=== PATIENT | male | born 2000 | race Caucasian/White ===

== ENCOUNTER 2020-08-20 15:46 | Emergency (ER) | payer OTHER ==
[2020-08-20 17:23] LABS: Bilirubin Neg (Negative); Blood, Urine Negative (Negative); Clarity Clear (Clear); Glucose, Urine (Dipstick) Normal (Negative); Ketone, Urine 50 mg/dL (Negative); Leukocyte Negative (Negative); Nitrite Negative (Negative); Protein, Urine (Dipstick) Negative (Neg-Trace); Specific Gravity, Urine 1.025 (1.002-1.036); Urobilinogen Normal mg/dL (Less than 2)
== END 2020-08-20 18:12 | disposition home or self-care (01) ==
LOC: CSHERS 15:46
DX: N50.811 Right testicular pain (principal)
CPT/HCPCS: 76870; 81003